=== PATIENT | male | born 1965 | race Caucasian/White ===

== ENCOUNTER 2024-03-13 06:59 | Day surgery (SDC) | payer MEDICAID ==
[~2024-03-13] VITALS: Ht 165.1 cm; Wt 80.3 kg
[2024-03-13] MEDS ORDERED: fentaNYL CITRATE/PF 100 MCG/2 ML AMP ONE (07:25)
[2024-03-13] MEDS ORDERED: MIDAZOLAM HCL 5 MG/5 ML VIAL ONE ×2 (07:26→10:04)
[2024-03-13 14:34] VITALS: O2SAT 98
[2024-03-13 14:52] VITALS: BP_SYST 124; PULSE 68; RESP 18
== END 2024-03-13 11:15 | disposition home or self-care (01) ==
LOC: SDS 06:59
PROVIDERS: ATTEND Internal Medicine
DX: K59.09 Other constipation (principal); D12.2 Benign neoplasm of ascending colon; R14.0 Abdominal distension (gaseous); K57.30 Diverticulosis of large intestine without perforation or abscess without bleeding; K64.8 Other hemorrhoids; E78.5 Hyperlipidemia, unspecified; I10 Essential (primary) hypertension; I25.10 Atherosclerotic heart disease of native coronary artery without angina pectoris; Z98.890 Other specified postprocedural states; Z79.899 Other long term (current) drug therapy; Z87.891 Personal history of nicotine dependence
CPT/HCPCS: 45385; 99152; 88305; G0378; J2250; J3010